=== PATIENT | female | born 2000 | race Caucasian/White ===

== ENCOUNTER 2022-12-20 16:45 | Emergency (ER) | payer OTHER, SELFPAY ==
--- NOTE | ~2022-12-20 | XR_ITS ---
EXAMINATION: XR chest 2V Exam Date/Time: 12/20/2022 17:40 CDT HISTORY: pill stuck in throat Comparison: None. RESULT: Lines, tubes, and devices: None. Lungs and pleura: Clear. Cardiomediastinal silhouette: Normal. Other: No acute osseous or upper abdominal finding. IMPRESSION: No acute cardiopulmonary process. No radiopaque foreign body Reviewed, dictated and finalized at location K.
[2022-12-20 16:50] VITALS: BP 153/85; PULSE 97; RESP 20; TEMP 36.4; O2SAT 100
--- NOTE | 2022-12-20 17:27 | ED.GENADULT ---
HPI - General Adult General Chief complaint: Unspecified Stated complaint: pill stuck in throat Time Seen by Provider: 12/20/22 16:59 Source: patient Mode of arrival: ambulatory Limitations: no limitations History of Present Illness HPI narrative: Patient is a 22-year-old female who presents to ED with report of globus sensation. Patient reports she takes doxycycline for acne and felt like she got her pill stuck in her throat on Sunday. She complains of a persistent foreign body sensation in her throat since then. She has been able to eat and drink normally and has continued taking her medications. She denies vomiting, coughing, choking. She was referred here by her school nurse. Denies feeling short of breath. Denies chest pain. Related Data Allergies Allergy/AdvReac Type Severity Reaction Status Date / Time No Known Allergies Allergy Verified 12/20/22 17:28 Review of Systems Review of Systems: CONSTITUTIONAL: Denies fever, chills, or sweats. ENT: See HPI. CARDIOVASCULAR: Denies chest pain, palpitations, or edema. RESPIRATORY: See HPI. GASTROINTESTINAL: Denies abdominal pain, nausea, vomiting. All systems reviewed & are unremarkable except as noted in HPI and below Exam Narrative: GENERAL: Well appearing, well-nourished, non-toxic, in no acute distress. HEAD: Normocephalic, atraumatic. ENT: Unremarkable, no tonsillar hypertrophy or exudate. No stridor or difficulty swallowing. NECK: Supple. No adenopathy, no masses. No swelling. RESPIRATORY: Airway patent, respirations nonlabored. Clear to auscultation bilaterally, no rales, rhonchi, wheezing. No focal lung sounds. No distress. CARDIOVASCULAR: Regular rate and rhythm without murmurs, rubs, or gallops. Radial pulses 2+ and equal bilaterally. MUSCULOSKELETAL: Moves all extremities. No gross deformities. SKIN: Warm, dry, normal color. No rashes. NEURO: A&O X3. Speech clear. Cranial nerves II-XII grossly intact. Steady gait. No ataxic movements. PSYCHIATRIC: Appropriate mood and affect. Normal interaction. Course Vital Signs Vital signs: Vital Signs Temperature 97.5 F L 12/20/22 16:50 Pulse Rate 97 12/20/22 16:50 Respiratory Rate 20 12/20/22 16:50 Blood Pressure 153/85 H 12/20/22 16:50 Pulse Oximetry 100 12/20/22 16:50 Oxygen Delivery Room Air 12/20/22 16:50 Temperature 97.5 F L 12/20/22 16:50 Pulse Rate 64 12/20/22 18:37 Respiratory Rate 15 12/20/22 18:37 Blood Pressure 118/76 12/20/22 18:37 Pulse Oximetry 100 12/20/22 18:37 Oxygen Delivery Room Air 12/20/22 16:50 Medical Decision Making MDM Narrative Medical decision making narrative: Patient presented to ED with concern for globus sensation x3 days, concerned pill is stuck in her throat. Patient able to eat and drink normally. No evidence of airway compromise or respiratory distress. No stridor. Exam otherwise unremarkable. Chest x-ray clear. Discussed likelihood of pill esophagitis causing symptoms versus pill still being stuck. Would expect it to be dissolved by now. Patient given GI cocktail. Will start patient on omeprazole. Will provide patient with GI follow-up if needed. Given return precautions. Discharged in stable condition. Medical Records Medical records reviewed: Yes I reviewed the external patient's medical records. Vital Signs Vital Signs: Vital Signs Temperature 97.5 F L 12/20/22 16:50 Pulse Rate 97 12/20/22 16:50 Respiratory Rate 20 12/20/22 16:50 Blood Pressure 153/85 H 12/20/22 16:50 Pulse Oximetry 100 12/20/22 16:50 Oxygen Delivery Room Air 12/20/22 16:50 Temperature 97.5 F L 12/20/22 16:50 Pulse Rate 64 12/20/22 18:37 Respiratory Rate 15 12/20/22 18:37 Blood Pressure 118/76 12/20/22 18:37 Pulse Oximetry 100 12/20/22 18:37 Oxygen Delivery Room Air 12/20/22 16:50 Imaging Data Attestation: I personally reviewed and interpreted this imaging study as follows: Radiologist's paola
[2022-12-20] MEDS: BELLADONNA ALK/PHENOB ELIX 10 ML, MAG HYDROX/ALUMINUM HYD/SIMETH 30 ML, LIDOCAINE HCL 2... PO (17:36)
[2022-12-20 18:37] VITALS: BP 118/76; PULSE 64; RESP 15; O2SAT 100
== END 2022-12-20 18:38 | disposition home or self-care (01) ==
LOC: ANHED 18:17
PROVIDERS: Emergency Provider Physician Assistant
DX: K20.80 Other esophagitis without bleeding (principal)
CPT/HCPCS: 71046; 99283; A9270